=== PATIENT | male | born 1990 | race Caucasian/White ===

== ENCOUNTER 2017-10-28 11:52 | Emergency (ER) | payer SELFPAY ==
[2017-10-28 11:59] VITALS: BP 120/60
--- NOTE | 2017-10-28 12:44 | ED Physician Documentation ---
History of Present Illness - Stated complaint Stated Complaint: COLD SWEATS/SINUS PRESSURE - Chief complaint Chief Complaint: General - History obtained from History obtained from: Patient (pt is here for a about a week of sinus congestion, ear pain, no sore throat, no rash, no cough, he states that he has not tried any medications for this. No fevers, states that he is blowing his nose.) - History of Present Illness Timing: Other (last week) Review of Systems Constitutional: denies: Fever, Chills Eyes: denies: Loss of vision, Decreased vision Ears: reports: Ear pain. denies: Loss of hearing, Drainage/discharge, Tinnitus/ ringing Nose: reports: Rhinorrhea / runny nose, Congestion, Sinus pressure / pain. denies: Epistaxis, Foreign Body Throat: denies: Dental pain / toothache, Sore throat, Swollen tonsils Cardiac: denies: Chest pain / pressure Respiratory: denies: Dyspnea, Cough GI: denies: Abdominal Pain, Nausea, Vomiting, Diarrhea : denies: Dysuria Skin: denies: Rash, Lesions Musculoskeletal: denies: Neck pain Neurologic: denies: Headache PD PAST MEDICAL HISTORY - Past Medical History Past Medical History: No Cardiovascular: None Respiratory: None Neuro: None Endocrine/Autoimmune: None - Past Surgical History Past Surgical History: Yes - Present Medications Home Medications: Ambulatory Orders Medication Instructions Recorded Confirmed Fluticasone [Flonase] 1 sprays SHIRLEY DAILY #1 bottle 10/28/17 Loratadine [Claritin] 10 mg PO DAILY #30 tablet 10/28/17 - Allergies Allergies/Adverse Reactions: Allergies Allergy/AdvReac Type Severity Reaction Status Date / Time No Known Drug Allergies Allergy Verified 10/28/17 11:59 - Social History Does the pt smoke?: Yes Smoking Status: Current every day smoker Does the pt drink ETOH?: Yes ETOH Use: Beer Does the pt have substance abuse?: Yes Substance Use and Type: Marijuana - Immunizations Immunizations are current?: Yes Immunizations: TDAP >10years/unknown - POLST Patient has POLST: No PD ED PE NORMAL - Vitals Vital signs reviewed: Yes - General General: Alert and oriented X 3, No acute distress, Well developed/nourished - HEENT HEENT: Atraumatic, PERRL, EOMI, Moist mucous membranes, Pharynx benign. No: Ears normal (left TM normal, right TM bulging w/o redness) - Neck Neck: Supple, no meningeal sign, No adenopathy - Cardiac Cardiac: RRR, No murmur - Respiratory Respiratory: No respiratory distress - Derm Derm: Normal color, No rash - Extremities Extremities: No deformity - Neuro Neuro: Alert and oriented X 3, Normal speech - Psych Psych: Normal mood, Normal affect Results - Vitals Vitals: Vital Signs - 24 hr 10/28/17 11:54 Temperature 36.5 C Heart Rate 80 Respiratory 18 Rate Blood Pressure 120/60 O2 Saturation 99 Oxygen O2 Source Room air PD MEDICAL DECISION MAKING - ED course Complexity details: d/w patient ED course: pt is non toxic, afebrile. lungs normal. hx and PE is not C/W PNA or the flu. he does have sinus congestion but has not tried any medications for this. Discussed with him. will send home with rx for claritin and flonase. Pt given return precautions. will hold on ABX for now. Pt agrees with plan. Departure - Departure Disposition: 01 Home, Self Care Clinical Impression: Upper respiratory infection Condition: Good Instructions: ED URI Viral Follow-Up: primary, care provider [Other] Prescriptions: Fluticasone [Flonase] 1 sprays SHIRLEY DAILY #1 bottle Loratadine [Claritin] 10 mg PO DAILY #30 tablet Comments: Return to the ER for any new or worsening symptoms.
== END 2017-10-28 12:52 | disposition home or self-care (01) ==
LOC: ED 11:52
DX: J06.9 Acute upper respiratory infection, unspecified (principal); F17.200 Nicotine dependence, unspecified, uncomplicated
CPT/HCPCS: 99282; 99283

== ENCOUNTER 2019-11-01 09:08 | Emergency (ER) | payer SELFPAY ==
[2019-11-01 09:19] VITALS: BP 129/73
--- NOTE | 2019-11-01 09:52 | XRAY Report ---
Reason: ankle pain, trauma Procedure Date: 11/01/2019 Accession Number: [id number] / [id number] Procedure: XR - Ankle 3 View RT CPT Code: Final Report FULL RESULT: EXAM: RIGHT ANKLE RADIOGRAPHY EXAM DATE: 11/01/2019 09:28 AM. CLINICAL HISTORY: Ankle pain, twisting. Trauma. COMPARISON: None. TECHNIQUE: 3 views. FINDINGS: Bones: Normal. No fractures or bone lesions. Joints: Normal. No effusion. No subluxations. The ankle mortise is normally aligned. Soft Tissues: Soft tissue swelling. IMPRESSION: 1. No acute osseous abnormalities. RADIA
--- NOTE | 2019-11-01 10:46 | ED Physician Documentation ---
PD HPI LOWER EXT INJURY - Stated complaint Stated Complaint: R ANKLE INJURY - Chief complaint Chief Complaint: Trauma Ext - History obtained from History obtained from: Patient - History of Present Illness PD HPI LOW EXT INJURY LOCATION: Right, Ankle Type of injury: Twist (rolled on a curb) Where injury occurred: Street Timing - onset: Last night Timing - duration: Days (1) Timing - details: Abrupt onset Severity Comments: moderate Improved by: Rest, Other (elevation) Worsened by: Moving, Palpating, Other (weight bearing) Associated symptoms: Swelling Contributing factors: No: Anticoagulated, Prior ortho surgery, Prosthetic joint, Work related Similar symptoms before: Has not had sx before Recently seen: Not recently seen - Treatment prior to arrival Treatment prior to arrival: none Review of Systems Ten Systems: 10 systems reviewed and negative Constitutional: denies: Fever Cardiac: reports: Reviewed and negative Respiratory: reports: Reviewed and negative GI: reports: Reviewed and negative : reports: Reviewed and negative Skin: reports: Reviewed and negative Musculoskeletal: reports: Extremity pain, Joint pain, Extremity swelling, Joint swelling. denies: Neck pain, Back pain Neurologic: denies: Generalized weakness, Focal weakness, Numbness Endocrine: reports: Reviewed and negative Immunocompromised: reports: Reviewed and negative PD PAST MEDICAL HISTORY - Past Medical History Past Medical History: No Cardiovascular: None Respiratory: None Endocrine/Autoimmune: None - Past Surgical History Past Surgical History: Yes - Present Medications Home Medications: Ambulatory Orders Medication Instructions Recorded Confirmed Fluticasone [Flonase] 1 sprays SHIRLEY DAILY #1 bottle 10/28/17 Loratadine [Claritin] 10 mg PO DAILY #30 tablet 10/28/17 - Allergies Allergies/Adverse Reactions: Allergies Allergy/AdvReac Type Severity Reaction Status Date / Time No Known Drug Allergies Allergy Verified 11/01/19 09:14 - Social History Does the pt smoke?: Yes Smoking Status: Current every day smoker Does the pt drink ETOH?: Yes Does the pt have substance abuse?: Yes - Immunizations Immunizations are current?: Yes Immunizations: TDAP >10years/unknown - POLST Patient has POLST: No PD ED PE NORMAL - Vitals Vital signs reviewed: Yes - General General: Alert and oriented X 3, No acute distress, Well developed/nourished - HEENT HEENT: Atraumatic, Moist mucous membranes - Neck Neck: Supple, no meningeal sign - Cardiac Cardiac: RRR - Respiratory Respiratory: No respiratory distress - Abdomen Abdomen: Soft, Non distended - Male Male : Deferred - Rectal Rectal: Deferred - Derm Derm: Warm and dry, No rash - Extremities Extremities: No deformity - Neuro Neuro: Alert and oriented X 3, No motor deficit, No sensory deficit Eye Opening: Spontaneous Motor: Obeys Commands Verbal: Oriented GCS Score: 15 - Psych Psych: Normal mood, Normal affect PD ED PE EXPANDED - Derm Derm: Bruising (right inferolateral ankle) - Extremities Extremities: Tenderness, Swelling, Bruising, Right ankle (tenderness to palpation is mild along the inferolateral ankle. mild tenderness at the R lateral malleolus. Swelling is present with some inferolateral bruising ), Motor intact, Sensory intact, Vascular intact, Tendon intact. No: Deformity, Limited ROM, Abrasion, Laceration Results - Vitals Vitals: Oxygen O2 Source Room air - Rads (name of study) R ankle xray Radiology: Final report received (negative for fx or dislocation ), See rad report PD MEDICAL DECISION MAKING - ED course Complexity details: reviewed results, re-evaluated patient, considered differential, d/w patient ED course: ddx- ankle sprain, ankle contusion, ankle fracture, ankle dislocation. 29 y/o M with hx and exam as documented. Xray neg for fx or dislocation, exam consistent with an ankle sprain. Given an janice wrap. Pt declined crutches. Advised him to continue RICE, nsaids and f/u with PCP. Departure - Departure Disposition: 01 Home, Self Care Clinical Impression: Ankle sprain Qualifiers: Encounter type: initial encounter Involved ligament of ankle: calcaneofibular ligament Laterality: right Qualified Code(s): S93.411A - Sprain of calcaneofibular ligament of right ankle, initial encounter Condition: Stable Record reviewed to determine appropriate education?: Yes Instructions: ED Sprain Ankle Follow-Up: your, doctor [Other] Comments: Your xray today was negative for ankle fracture. This is likely a bad sprain. Continue ibuprofen and tylenol for pain. Ice as much as possible for the first few days. Elevated it as much as possible and rest. Avoid heavy lifting or running for a week or 2. Forms: Activity restrictions Discharge Date/Time: 11/01/19 11:08
== END 2019-11-01 11:08 | disposition home or self-care (01) ==
LOC: ED 09:08
DX: S93.411A Sprain of calcaneofibular ligament of right ankle, initial encounter (principal); X50.1XXA Overexertion from prolonged static or awkward postures, initial encounter; Y92.480 Sidewalk as the place of occurrence of the external cause; F17.200 Nicotine dependence, unspecified, uncomplicated
CPT/HCPCS: 99283; 99284

== ENCOUNTER 2020-12-24 12:58 | Outpatient (CLI) | payer SELFPAY | END 2020-12-24 23:59 | disposition home or self-care (01) | LOC: LAB.R 12:58 | PROVIDERS: ATTEND Nurse Practitioner | DX: B34.9 Viral infection, unspecified (principal); J06.9 Acute upper respiratory infection, unspecified; Z20.822 Contact with and (suspected) exposure to COVID-19 | CPT/HCPCS: 87275; 87276 ==